=== PATIENT | male | born 1945 | race Caucasian/White ===

== ENCOUNTER 2019-10-20 13:59 | Observation (INO) ==
[2019-10-20] MEDS ORDERED: Naloxone 0.4 MG/ML INJ IVP PRN (16:32)
[2019-10-20] MEDS ORDERED: Ondansetron 4 MG/2 ML VIAL IVP PRN (16:32)
[2019-10-20] MEDS ORDERED: Acetaminophen 325 MG TABLET PO PRN (16:36)
[2019-10-20] MEDS ORDERED: Milk and Molasses Enema 200 ML RC ONE (16:42)
[2019-10-20] MEDS ORDERED: 0.9 % Sodium Chloride 1,000 ML IVC SCH (16:45)
[2019-10-20] MEDS: *HR* Heparin 5,000 UNIT/ML VIAL SQ SCH (20:05)
[2019-10-21] MEDS: *HR* Heparin 5,000 UNIT/ML VIAL SQ SCH (05:24)
[2019-10-21 06:43] LABS: Basophils # 0.1 K/mcL (0.0-0.2); Basophils % 0.9 %; Eosinophils # 0.1 K/mcL (0.0-0.6); Eosinophils % 1.5 %; Hematocrit 41.2 % (37.5-50.1); Hemoglobin 13.1 g/dL (12.9-16.9); Immature Granulocytes % 0.3 % (0-4); Mean Corpuscular HGB Conc 31.8 g/dL (31.6-35.5); Mean Corpuscular Hemoglobin 31.5 pg (28.0-33.3); Mean Platelet Volume 10.4 fL (9.4-12.4); Monocytes # 0.6 K/mcL (0.0-1.3); Neutrophils # 3.1 K/mcL (1.6-8.9); Platelet Count 142 K/mcL (140-400); Red Blood Count 4.16 M/mcL (4.19-5.50); Red Cell Distribution Width 12.8 % (11.5-14.5); Segmented Neutrophils % 45.3 %; White Blood Count 6.8 K/mcL (4.3-11.1)
[2019-10-21 07:03] LABS: BUN/Creatinine Ratio 33 (6-26); Blood Urea Nitrogen 12 mg/dL (8-23); Calcium 8.9 mg/dL (8.6-10.3); Carbon Dioxide 20 mEq/L (23-29); Chloride 103 mEq/L (98-107); Glucose 52 mg/dL (70-105); Osmolality,Calculated 275 (280-300); Potassium 4.5 mEq/L (3.5-5.1); Sodium 134 mEq/L (136-145); eGFR For African Americans > 60 (> 60); eGFR For Non-African Americans > 60 (> 60)
[2019-10-21 07:42] VITALS: BP 109/58
[2019-10-21] MEDS ORDERED: Fluticasone Propionate Nasal 50 MCG/SPRAY BOTTLE NS SCH (09:00)
[2019-10-21] MEDS ORDERED: Loratadine 10 MG TABLET PO SCH (09:00)
[2019-10-21] MEDS ORDERED: polyethylene glycoL 3350 17 GM POWD.PACK PO SCH (09:00)
[2019-10-21] MEDS ORDERED: Finasteride 5 MG TABLET PO SCH (09:00)
[2019-10-21] MEDS ORDERED: Sennosides 8.6 MG TABLET PO SCH (09:00)
== END 2019-10-21 11:43 | disposition home or self-care (01) ==
LOC: 3ANU → SUATTDRO 16:05
PROVIDERS: ADMIT Family Medicine; ATTEND Family Medicine